=== PATIENT | female | born 1985 | race Caucasian/White ===

== ENCOUNTER 2016-11-17 15:18 | Emergency (ER) | payer OTHER | END 2016-11-17 17:10 | disposition home or self-care (01) | LOC: FER 15:18 | DX: S61.431A Puncture wound without foreign body of right hand, initial encounter (principal); S81.832A Puncture wound without foreign body, left lower leg, initial encounter; Z23 Encounter for immunization; W54.0XXA Bitten by dog, initial encounter | CPT/HCPCS: 90471; 90715 ==